=== PATIENT | male | born 1975 | race Hispanic/Latino ===

== ENCOUNTER 2018-08-27 21:13 | Emergency (ER) | payer MEDICARE ==
[2018-08-27] MEDS ORDERED: DIAZEPAM 5 MG TABLET ONE (21:36)
[2018-08-27] MEDS ORDERED: KETOROLAC TROMETHAMINE 60 MG/2 ML VIAL ONE (21:36)
== END 2018-08-27 23:17 | disposition home or self-care (01) ==
LOC: EDH 21:13
DX: M54.5 Low back pain (principal); I10 Essential (primary) hypertension; E11.9 Type 2 diabetes mellitus without complications; E78.5 Hyperlipidemia, unspecified; Z79.4 Long term (current) use of insulin; Z98.890 Other specified postprocedural states
CPT/HCPCS: 96372; 99283; J1885